=== PATIENT | female | born 1970 | race Two or more races ===

== ENCOUNTER → 2016-11-07 | Outpatient (CLI) | payer OTHER ==
[~2016-11-07] MED LIST: ACET500C5 PO; EMPA10TA PO; OMEP40CA6 PO; SITA25TA3 PO
== END | disposition home or self-care (01) ==
LOC: HKI 08:46
PROVIDERS: ATTEND Orthopaedic Surgery
DX: M25.561 Pain in right knee (principal); M17.11 Unilateral primary osteoarthritis, right knee

== ENCOUNTER → 2017-03-13 | Outpatient (CLI) | payer OTHER ==
--- NOTE | 2017-03-13 14:52 | PN ---
Date/Time of Note Date/Time of Note DATE: 03/13/17 TIME: 14:49 Assessment/Plan VTE Prophylaxis VTE Prophylaxis Intervention: ambulation Assessment/Plan Assessment/Plan ASSESSMENT: Right knee medial compartment osteoarthritis PLAN: The patient underwent a Monovisc injection to her right knee today. She tolerated the procedure well. I recommended she modify her physical activity and apply ice and take [id number] anti-inflammatories for her pain. We will see her back on an as-needed basis. She can repeat the injection in 6 months. At some point she may need to consider having a unicompartmental versus total knee replacement. PROCEDURE NOTE: The procedure was fully explained to the patient, and informed consent was obtained prior to the start of procedure. The area was prepped and draped in sterile fashion using Betadine. Ethyl chloride was used to anesthetize the superolateral aspect of the right knee and 4 cc of Monovisc was injected intra-articularly. Sterile dressing was then applied. The patient tolerated the procedure well. All questions and concerns were addressed at the time of procedure. Subjective 24 Hr Interval Summary Free Text/Dictation Nay presents today for a follow-up evaluation on her right knee. Last time we saw her, she had a cortisone injection to her right knee which did provide some temporary relief. Unfortunately it elevated her blood sugar levels. She does have a history of diabetes and would like to hold off on repeating cortisone injections. She complains of persistent pain to her right knee, especially with ambulation up and down the stairs. She has never had a Visco supplementation injection. She is here today for a Monovisc injection to her right knee. Exam/Review of Systems Exam On exam today, she is alert and oriented 4, in no acute distress. Exam of the right knee demonstrates no effusion. Range of motion is 0-120. There is no erythema or warmth noted. Varus and valgus forces are stable. She does have diffuse nonspecific tenderness to palpation. Homans sign is negative. Compartments are otherwise soft. She is neurovascularly intact distally. IMAGING: X-rays of the right knee were obtained today and reviewed by me. They demonstrate some mild medial joint space narrowing. The lateral compartment appears well-maintained. There is some mild irregularity of the patellofemoral compartment, but otherwise the joint spaces are generally well maintained. No fractures or dislocations identified. GURWINDER MARTÍNEZ PA-C Mar 13, 2017 14:52
--- NOTE | 2017-03-13 15:23 | RADRPT ---
PROCEDURE: Right knee radiographs. CLINICAL INDICATION: Right knee pain. TECHNIQUE: Four views. Weight bearing. Frontal, lateral, oblique, and patellar view. COMPARISON: 09/05/2015. FINDINGS: There is no fracture or dislocation. The soft tissues are normal. There are degenerative changes with osteophytes arising from all 3 joint compartment margins. There is no joint space narrowing or deformity. There is no lytic or blastic lesion. There is no radiopaque foreign body. IMPRESSION: 1. Mild degenerative changes of the right knee. 2. Otherwise unremarkable study. 3. No change from 09/05/2015. RPTAT: QQ .Joao Cabello MD, MD Date Time Electronically viewed and signed by .Joao Cabello MD, on 03/13/2017 15:23 .R/
== END | disposition home or self-care (01) ==
LOC: HKI 14:20
PROVIDERS: ATTEND Orthopaedic Surgery
DX: M17.11 Unilateral primary osteoarthritis, right knee (principal)

== ENCOUNTER → 2017-06-30 | Outpatient (CLI) | payer OTHER ==
--- NOTE | 2017-06-30 18:10 | HKNOTE ---
DATE OF SERVICE: 06/30/2017 CHIEF COMPLAINT: Right knee pain. HISTORY OF PRESENT ILLNESS: This is a 47-year-old female who was previously seen by Dr. Samm Ventura and had a cortical steroid injection as well as monovisc injection of the right knee. She states that she recently had a history of trauma and heard a pop in the right knee. She has had difficulty walking. She went to the emergency department last week and was given a knee immobilizer. She states that her pain has improved. She has occasional locking and catching. She has instability of the right knee. She uses a cane for ambulation. She is taking ibuprofen for pain control. GAIT: Antalgic gait, reciprocal gait pattern. RIGHT KNEE EXAM: There is an effusion of the right knee. She is tender over the medial and lateral joint lines 0 to 120 degrees, range of motion stable to varus and valgus stress, negative Mindy, negative anterior drawer, negative posterior drawer. Positive Toi's medially and laterally. Motor strength 5/5, hamstrings, tibialis anterior, gastrocsoleus. IMPRESSION: This is a 47-year-old female with recent history of trauma to the right knee. PLAN: We will request authorization for MRI of the right knee. She will follow up within 6 weeks to go over the results. Dictated By: SARTHAK BROWN/SHELLEY Conf#: [id number] DID#: [id number] MTDDoc
== END | disposition home or self-care (01) ==
LOC: HKI 15:29
PROVIDERS: ATTEND Orthopaedic Surgery Adult Reconstructive Orthopaedic Surgery
DX: S89.91XD Unspecified injury of right lower leg, subsequent encounter (principal); X58.XXXD Exposure to other specified factors, subsequent encounter
CPT/HCPCS: G0463

== ENCOUNTER → 2017-07-27 | Outpatient (CLI) | payer OTHER ==
--- NOTE | 2017-07-28 05:00 | HKNOTE ---
DATE OF SERVICE: 07/27/2017 CHIEF COMPLAINT: Right knee pain. HISTORY OF PRESENT ILLNESS: This is a 47-year-old female with right knee degenerative changes, who recently had an MRI as she is complaining of pain in the right knee. She has difficulty going up an d down the stairs. She has difficulty ambulating. She denies any locking or catching. She denies any instability. She does not use any assistive devices. Gait, is nonantalgic gait, reciprocal gait pattern, right knee. PHYSICAL EXAMINATION: Tender over the medial joint line, nontender over the lateral joint line, 0 t o 120 degrees range of motion stable to varus valgus stress negative Mindy, negative anterior draw er, negative posterior drawer, and positive Toi's medially. MRI right knee, there is an irregularity of the posterior horn of the medial meniscus. No definite tear is seen. No tears are seen in the lateral meniscus. There is chondromalacia of the patellofem oral joint and the medial compartment. IMPRESSION: A 47-year-old female with mild right knee degenerative joint disease. PLAN: We will request authorization for physical therapy of the right knee as well as corticosteroi d injection. She was instructed to take ibuprofen for pain control. She will follow up following a pproval of her injection. Dictated By: SARTHAK BROWN/SHELLEY Conf#: [id number] DID#: [id number]
== END | disposition home or self-care (01) ==
LOC: HKI 09:13
PROVIDERS: ATTEND Orthopaedic Surgery Adult Reconstructive Orthopaedic Surgery
DX: M17.11 Unilateral primary osteoarthritis, right knee (principal); M22.41 Chondromalacia patellae, right knee
CPT/HCPCS: G0463

== ENCOUNTER → 2017-08-28 | Outpatient (CLI) | END | disposition home or self-care (01) ==

== ENCOUNTER → 2018-01-15 | Outpatient (CLI) | END | disposition home or self-care (01) ==

== ENCOUNTER → 2018-01-19 | Outpatient (CLI) | END | disposition home or self-care (01) ==

== ENCOUNTER → 2018-02-05 | Outpatient (CLI) | END | disposition home or self-care (01) ==

== ENCOUNTER → 2018-04-13 | Outpatient (CLI) | END | disposition home or self-care (01) ==

== ENCOUNTER → 2018-05-28 | Outpatient (CLI) | END | disposition home or self-care (01) ==

== ENCOUNTER → 2018-07-23 | Outpatient (CLI) | END | disposition home or self-care (01) ==

== ENCOUNTER → 2018-10-12 | Outpatient (CLI) | payer OTHER ==
--- NOTE | 2018-10-12 17:42 | HKNOTE ---
DATE OF SERVICE: HISTORY OF PRESENT ILLNESS: Ms. Corrales is complaining of pain in her left knee. She has difficulty a mbulating. She does not take any pain medications or use assistive devices. She has had previous ri ght knee Monovisc injection with improvement of her pain. PHYSICAL EXAMINATION: Left knee: Mild varus alignment, tender over the medial joint line, 0 to 120 degrees range of motion, stable to varus valgus stress, negative Mindy, negative anterior drawer, n egative posterior drawer, negative Toi's. IMAGING: MRI of the left knee: There is advanced degenerative changes of the medial compartment wit h grade IV chondromalacia. IMPRESSION: A 48-year-old female with left knee osteoarthritis. PLAN: The patient failed previous treatment including pain medications and activity modification. W e will request authorization for additional physical therapy as well as Monovisc injection of the lef t knee. She will follow up in 6 weeks. Dictated By: SARTHAK BROWN/SHELLEY Conf#: [id number] DID#: [id number]
== END | disposition home or self-care (01) ==
LOC: HKI 15:14
PROVIDERS: ATTEND Orthopaedic Surgery Adult Reconstructive Orthopaedic Surgery
DX: M17.12 Unilateral primary osteoarthritis, left knee (principal); M94.262 Chondromalacia, left knee
CPT/HCPCS: G0463

== ENCOUNTER → 2018-11-05 | Outpatient (CLI) | payer OTHER ==
--- NOTE | 2018-11-05 17:15 | CONS ---
Consult Date/Type/Reason Admit Date/Time Initial Consult Date Date/Time of Note DATE: 11/05/18 TIME: 17:12 Subjective 48-year-old female with known bilateral knee osteoarthritis. She previously had a right knee Monovisc injection 5 months ago. She had significant relief from this. She follows up in clinic today for left knee Monovisc injection. Objective Vitals Patient vitals reviewed in chart and are within normal limits Exam General: Awake, alert, in no acute distress, pleasant and cooperative Heart: regular rhythm Lungs: breathing comfortably, no tachypnea or dyspnea MUSCULOSKELETAL: left LE: Skin intact. No erythema or warmth. Tender to palpation along the medial and lateral joint line. Sensation intact to light touch in a sural, saphenous, deep peroneal, superficial peroneal, medial and lateral plantar nerve distribution. Motor is intact, patient able to dorsiflex and plantarflex ankle and extend and flex great toe. Dorsalis Pedis pulse +2, Brisk capillary refill. Compartments are soft. Calves non-tender to palpation bilaterally. Results/Medications Home Meds Reported Medications Acetaminophen* (Tylophen*) 500 Mg Capsule, 500 MG PO BID PRN for PAIN, TAB 09/10/15 Omeprazole* (Omeprazole*) 40 Mg Capsule.dr, 40 MG PO DAILY, #30 CAP 09/10/15 Empagliflozin (Jardiance) 10 Mg Tablet, 10 MG PO, TAB 09/10/15 Sitagliptin* (Januvia*) 25 Mg Tablet, 25 MG PO DAILY, #30 TAB 09/10/15 Assessment/Plan Hospital Course (Demo Recall) 48-year-old with bilateral knee osteoarthritis. Patient would like a left knee Visco supplementation injection. This is reasonable given that she had success in her other knee and needs to start conservative management for her left knee pain. plan: Left knee Monovisc injection Weight loss Low impact activities Ice Assessment/Plan (Daily) Left knee viscosupplementation injection procedure: Risks and benefits of viscosupplementation injection reviewed with patient. The risks include infection, failure, pain, swelling, nerve/tendon/ligament damage. The patient verbalized understanding and verbal consent was obtained prior to procedure. The left knee was prepped in a sterile fashion with alcohol and betadine the site of injection was confirmed. Anteromedial approach was used. The skin and capsule was anesthetized with 3mL 1% lidocaine. The left knee was injected with Monovisc. Injection flowed freely. Good hemostasis was achieved and no complications noted. The patient tolerated the procedure well. Limit activity and ice for 24-48 hours MARVIN DAY MD Nov 05, 2018 17:15
== END | disposition home or self-care (01) ==
LOC: HKI 15:59
PROVIDERS: ATTEND Orthopaedic Surgery Adult Reconstructive Orthopaedic Surgery
DX: M17.0 Bilateral primary osteoarthritis of knee (principal)
CPT/HCPCS: 20610; J7327; Z7500; G0463

== ENCOUNTER → 2019-01-06 | Outpatient (CLI) | payer OTHER ==
--- NOTE | 2019-01-06 17:06 | CONS ---
Consult Date/Type/Reason Admit Date/Time Initial Consult Date Date/Time of Note DATE: 01/06/19 TIME: 17:04 Subjective 48-year-old female with bilateral knee osteoarthritis. She previously had a left knee Monovisc injection this past October. She had significant relief from this and physical therapy. She presents today for a right Monovisc knee injection. Denies any changes in her symptoms since last appointment. Objective Vitals Weight: 235 pound Height: 5 foot 5 inches Temperature: 98.3 Heart Rate: 88 Blood Pressure: 135/61 Respiratory Rate: 14 Exam General: Awake, alert, in no acute distress, pleasant and cooperative Heart: regular rhythm Lungs: breathing comfortably, no tachypnea or dyspnea MUSCULOSKELETAL: Right lower extremity: Skin intact. No erythema. Sensation intact to light touch in a sural, saphenous, deep peroneal, superficial peroneal, medial and lateral plantar nerve distribution. Motor is intact, patient able to dorsiflex and plantarflex ankle and extend and flex great toe. Dorsalis Pedis pulse +2, Brisk capillary refill. Compartments are soft. Calves non-tender to palpation bilaterally. Results/Medications Home Meds Reported Medications Acetaminophen* (Tylophen*) 500 Mg Capsule, 500 MG PO BID PRN for PAIN, TAB 09/10/15 Omeprazole* (Omeprazole*) 40 Mg Capsule.dr, 40 MG PO DAILY, #30 CAP 09/10/15 Empagliflozin (Jardiance) 10 Mg Tablet, 10 MG PO, TAB 09/10/15 Sitagliptin* (Januvia*) 25 Mg Tablet, 25 MG PO DAILY, #30 TAB 09/10/15 Assessment/Plan Hospital Course (Demo Recall) 48-year-old female with known bilateral knee osteoarthritis. She had good success with her left knee Monovisc injection. She is going to undergo a right knee Monovisc injection today. Plan: Right knee Monovisc injection. Physical therapy for bilateral knees. Assessment/Plan (Daily) Right knee viscosupplementation injection procedure: Risks and benefits of viscosupplementation injection reviewed with patient. The risks include infection, failure, pain, swelling, nerve/tendon/ligament damage. The patient verbalized understanding and verbal consent was obtained prior to procedure. The right knee was prepped in a sterile fashion with alcohol and betadine the site of injection was confirmed. Anteromedial approach was used. The skin and capsule was anesthetized with 3mL 1% lidocaine. The right knee was injected with Monovisc. Injection flowed freely. Good hemostasis was achieved and no complications noted. The patient tolerated the procedure well. Limit activity and ice for 24-48 hours MARVIN DAY MD January 06, 2019 17:06
== END | disposition home or self-care (01) ==
LOC: HKI 14:17
PROVIDERS: ATTEND Orthopaedic Surgery Adult Reconstructive Orthopaedic Surgery
DX: M17.0 Bilateral primary osteoarthritis of knee (principal)
CPT/HCPCS: 20610; J7327; Z7500; Z7610; G0463

== ENCOUNTER → 2019-02-07 | Outpatient (CLI) | payer OTHER ==
--- NOTE | 2019-02-07 10:58 | CONS ---
Consult Date/Type/Reason Admit Date/Time Initial Consult Date Date/Time of Note DATE: 02/07/19 TIME: 10:52 Subjective 48-year-old diabetic female following up today for left knee pain. She previously known to me for bilateral knee osteoarthritis. She had a right knee Monovisc injection about 1 month ago and a left knee Monovisc injection about 3 months ago. Her pain was previously on the medial aspect where the majority of her osteoarthritis is located. About 1 month ago she did miss a step and "jammed" her left knee. She had significant lateral knee pain. Denies any mechanical symptoms. She has been physical therapy. She has been using ice and anti-inflammatories. She is over 50% improved since the injury. She wants to make sure there is nothing else wrong and if there is anything else she can do. Of note she is being evaluated by a vascular surgeon for peripheral vascular disease. Objective Vitals Weight: 235 pounds Height: 5 foot 5 inches Temperature: 98.2 Heart Rate: 104 Blood Pressure: 133/65 Respiratory Rate: 12 Exam General: Alert, oriented x3. No Acute Distress. Heart: Regular rate and rhythm. Lungs: No respiratory distress. No accessory muscle use. Musculoskeletal: Left Knee This is a well developed obese female who is alert, oriented times three and in no apparent distress. Skin is intact over the left knee as well as the lower extremity with no abrasions, lacerations, or ulcerations. Observation of the patient's gait reveals an antalgic gait with Varus thrust. Frontal plane alignment is varus. There is no pain to palpation of either joint line. There is some tenderness to palpation over the soft tissues of the lateral distal femur the patient demonstrates grinding anteriorly with ROM. Range of motion: 0 extension to approximately 120 degrees of flexion. Collateral ligament testing reveals no instability with varus or valgus stress at 0 and 30 degrees of flexion. Negative Mindy's and negative posterior drawer. Neurovascularly intact with 5/5 EHL/tibialis a nterior/gastroc. Sensation intact to light touch in a sural, saphenous, deep peroneal, superficial peroneal, medial and lateral plantar nerve distribution. Palpable, symmetric dorsalis pedis and posterior tibial pulses in both lower extremities. Hip examination normal. Results/Medications Home Meds Reported Medications Acetaminophen* (Tylophen*) 500 Mg Capsule, 500 MG PO BID PRN for PAIN, TAB 09/10/15 Omeprazole* (Omeprazole*) 40 Mg Capsule.dr, 40 MG PO DAILY, #30 CAP 09/10/15 Empagliflozin (Jardiance) 10 Mg Tablet, 10 MG PO, TAB 09/10/15 Sitagliptin* (Januvia*) 25 Mg Tablet, 25 MG PO DAILY, #30 TAB 09/10/15 Imaging The patient received a standard set of films today that were personally reviewed. Imaging included a standing bilateral knee AP, PA flexion, merchant views and a dedicated lateral of the affected knee: There is varus alignment of the knee. There is complete loss of joint space medial compartment(s) of bilateral knees. There is osteophyte formation. There is subchondral sclerosis. There are subchondral cysts. Degenerative changes are most severe in the medial compartment(s) Assessment/Plan Hospital Course (Demo Recall) 48-year-old female with bilateral knee osteoarthritis. She continues to have significant relief from the Orthovisc injections as her previous location of pain over the medial joint line continues to be significantly reduced. Her pain is in a different location today over the lateral distal femur and thigh. The pain is significantly improved since the injury. There are no concerns for fracture or other ligamentous injury. Would recommend continued physical therapy and strengthening for bilateral lower extremities. I also discussed the patient about continuing weight loss and the importance of her weight loss for her knees. Follow-up PRN for bilateral knee arthritis MARVIN DAY MD Feb 07, 2019 10:58
--- NOTE | 2019-02-13 23:10 | RADRPT ---
PROCEDURE: XR bilateral knees. CLINICAL INDICATION: 48-year of age, female. Pain. TECHNIQUE: 8 views of the bilateral knees with weight bearing including bilateral skyline patellar views and frontal intercondylar notch views. COMPARISON: None available FINDINGS: RIGHT KNEE: There is tricompartment osteoarthritis with joint space narrowing and osteophytes in all 3 knee joint compartments. The medial knee joint compartment is most affected where there is obliteration of the joint space and bone on bone. Normal alignment. Negative for evidence of a joint effusion. Negativ e for significant soft tissue swelling. Additional comment: None. LEFT KNEE: There is tricompartment osteoarthritis with joint space narrowing and osteophytes in all 3 knee joint compartments. The medial knee joint compartment is most affected where there is obliteration of the joint space and bone on bone. Normal alignment. Negative for evidence of a joint effusion. Negative for significant soft tissue swelling. Additional comment: None. IMPRESSION: Tricompartment osteoarthritis of bilateral knees greatest in the medial knee joint compartments where osteoarthritis is severe with bone on bone as described. RPTAT: HCTS Physician Miracle Date Time Electronically viewed and signed by Physician Miracle on 02/13/2019 23:10 /
== END | disposition home or self-care (01) ==
LOC: HKI 09:53
PROVIDERS: ATTEND Orthopaedic Surgery Adult Reconstructive Orthopaedic Surgery
DX: M17.0 Bilateral primary osteoarthritis of knee (principal)
CPT/HCPCS: 73564; Z7500; G0463